=== PATIENT | female | born 1995 | race Two or more races ===

== ENCOUNTER 2024-04-08 12:31 | Inpatient (IN) | payer OTHER ==
[2024-04-08 13:35] VITALS: BMI 23.9
[2024-04-08] MEDS: ELECTROLYTE-148 SOLN 1,000 ML IV SCH (14:15)
[2024-04-08 14:18] LABS: BASO % 0.2 % (0-2.0); EOS % 1.4 % (0-4.5); HEMATOCRIT 33.1 % (32.4-45.2); HEMOGLOBIN 10.9 GM/dL (10.7-15.3); LYMPH % 22.8 % (8-40); MCH 27.2 pg (25.7-33.7); MCHC 32.9 g/dl (32.0-36.0); MEAN CELL VOLUME 82.8 fl (80-96); MEAN PLT VOLUME 7.9 fl (7.5-11.1); MONO % 9.9 % (3.8-10.2); NEUT % 65.7 % (42.8-82.8); PLATELET COUNT 234 10^3/uL (134-434); RBC 3.99 M/mm3 (3.60-5.2); RDW 13.7 % (11.6-15.6); WHITE BLOOD COUNT 6.5 K/mm3 (4.0-10.0)
[2024-04-08 14:24] LABS: INR 0.91 (0.83-1.09); PROTHROMBIN TIME (PATIENT) 10.5 SEC (9.7-13.0)
[2024-04-08 14:27] LABS: ACTIVATED PTT 29.4 SECONDS (25.2-36.5)
[2024-04-08] MEDS ORDERED: OXYTOCIN 30 UNITS in 0.9% NS 30 UNIT/500 ML INFUS.BAG IVPB ONE (14:36)
[2024-04-08] MEDS ORDERED: AMPICILLIN SODIUM 2 GM VIAL ONE (14:36)
[2024-04-08] MEDS ORDERED: SODIUM CHLORIDE 100 ML IVPB ONE (14:36)
[2024-04-08] MEDS: OXYTOCIN 30 UNITS in 0.9% NS 30 UNIT/500 ML INFUS.BAG IVPB SCH (14:41)
[2024-04-08] MEDS: AMPICILLIN - 2 GM in SODIUM CHLORIDE 100 ML IVPB ONE (14:45)
[2024-04-08 15:34] LABS: CALCIUM 9.2 mg/dL (8.5-10.1)
[2024-04-08 15:37] LABS: CREATININE 0.4 mg/dL (0.55-1.3)
[2024-04-08] MEDS ORDERED: OXYTOCIN 20 UNITS in 0.9% NS 20 UNIT/1,000 ML INFUS.BAG IV ONE (15:48)
[2024-04-08] MEDS ORDERED: LIDOCAINE HCL 1% PRESERVATIVE FREE - 30ML VIAL ONE (15:49)
[2024-04-08 16:29] LABS: HIV INTERPRETATION NEGATIVE (NEGATIVE)
[2024-04-08] MEDS ORDERED: IBUPROFEN 600 MG TABLET (FP) PO ONE (17:08)
[2024-04-08] MEDS: IBUPROFEN 600 MG TABLET (FP) PO PRN (17:10)
[2024-04-08] MEDS: DEXTROSE 5%-LACTATED RINGERS 1,000 ML IV SCH (17:24)
[2024-04-08] MEDS ORDERED: ACETAMINOPHEN 325 MG TABLET (FP) PO PRN (17:27)
[2024-04-08] MEDS ORDERED: WITCH HAZEL 50% (TUCKS) 40 PAD/JAR PAD TP PRN (17:27)
[2024-04-08] MEDS ORDERED: oxyCODONE HCL 5 MG TABLET PO PRN (17:27)
[2024-04-08] MEDS ORDERED: BENZOCAINE 20% 57 GM BOTTLE TP PRN (17:27)
[2024-04-08] MEDS ORDERED: BENZOCAINE 28 GM HEMORRHOIDAL OINTMENT TP PRN (17:27)
[2024-04-08] MEDS ORDERED: METHYLERGONOVINE MALEATE 0.2 MG/1 ML AMP IM PRN (17:27)
[2024-04-08] MEDS ORDERED: BISACODYL 10 MG SUPP.RECT RC PRN (17:27)
[2024-04-08] MEDS: OXYTOCIN 20 UNITS in 0.9% NS 20 UNIT/1,000 ML INFUS.BAG IV SCH (17:35)
[2024-04-08] MEDS: AMPICILLIN - 1 GM in SODIUM CHLORIDE 100 ML IVPB SCH (21:17)
[2024-04-09 08:11] LABS: BASO % 0.1 % (0-2.0); EOS % 0.4 % (0-4.5); HEMATOCRIT 31.6 % (32.4-45.2); HEMOGLOBIN 10.5 GM/dL (10.7-15.3); LYMPH % 16.1 % (8-40); MCH 27.6 pg (25.7-33.7); MCHC 33.3 g/dl (32.0-36.0); MEAN CELL VOLUME 82.8 fl (80-96); MONO % 7.4 % (3.8-10.2); PLATELET COUNT 219 10^3/uL (134-434); RBC 3.82 M/mm3 (3.60-5.2); RDW 13.7 % (11.6-15.6); WHITE BLOOD COUNT 10.3 K/mm3 (4.0-10.0)
[2024-04-09] MEDS: PRENATAL VITAMINS W/ FOLIC ACID TABLET (FP) PO SCH (10:42)
[2024-04-09] MEDS: FERROUS SO4 325 MG TABLET (FP) PO SCH (10:42)
[2024-04-09] MEDS ORDERED: SENNOSIDES/DOCUSATE COMBO (SENNA PLUS) TABLET (UD) PO PRN (22:00)
[2024-04-10 11:25] VITALS: BP 110/69; PULSE 83; RESP 17; TEMP 97.7
[2024-04-11 10:54] LABS: POC NITRAZINE NEG
[2024-04-11 10:55] LABS: POC NITRAZINE POS
[2024-04-11 10:55] LABS: POC NITRAZINE NEG
== END 2024-04-10 13:50 | disposition home or self-care (01) | DRG 560 ==
LOC: JDEL 12:31 → JLDR 13:15 → J3W 21:14
PROVIDERS: ADMIT Obstetrics & Gynecology; ATTEND Obstetrics & Gynecology
PROC: 10E0XZZ Delivery of Products of Conception, External Approach (ICD-10-PCS; principal; 2024-04-08)
DX: O80 Encounter for full-term uncomplicated delivery (principal); Z3A.38 38 weeks gestation of pregnancy; Z37.0 Single live birth
CPT/HCPCS: 36415; 59409; 80048; 83986-QW; 85025; 85610; 85730; 86780; 86803; 86850; 86900; 86901; 87389